=== PATIENT | male | born 1955 | race Caucasian/White ===

== ENCOUNTER → 2017-03-21 | Outpatient (CLI) | payer BC ==
--- NOTE | 2017-03-21 20:58 | CONS ---
CONSULTATION REASON FOR CONSULTATION: Obstructive sleep apnea. This is a 61-year-old male patient. He is coming in for a routine check up regarding obstructive sleep apnea treatment and the patient is also requesting supplies. The patient was diagnosed having obstructive sleep apnea. Based on the sleep study that was done back in 2005 at [facility]. At that time, the patient was found to have mild DIVYA with a apnea-hypopnea index of 6 worse in a supine body position with an AHI of 15. In 2007 the patient had gained significant amount of weight and his repeat polysomnogram showed an AHI of 47, consistent with severe DIVYA. At that time, the patient was given CPAP therapy at a pressure of 11 cm of water. This is the second CPAP unit that the patient has since he started treatment back in 2005. His current CPAP unit is adjusted to the pressure of 11 cm of water. He is still using it every night. He benefits from treatment. He wakes up alert and refreshed during the day. Unfortunately he started sleeping on a couch at around 8:00 pm. He gets up around midnight, goes to his bed and sleeps between 1:00 a.m. and 7:30 a.m. in the morning. No snoring while on the CPAP; however, he snores excessively while off the CPAP. His average CPAP use is 4 hours and 42 minutes. His CPAP use for more than 4 hours is more than 75% of the time. His AHI while on treatment is down to 2.3. He is trying to lose weight although overall his weight is up to 298 pounds and this has been considerably higher compared to his baseline of 235. At the time of his initial diagnosis. Overall he is at least 60 pounds up in his weight. The patient has no insomnia. He no restlessness in lower extremities. His Maxwell score is at 2. He does not fall asleep while driving or the performing activities of day-to-day life. He lives an [place]. His main comorbidities include hypertension. PAST MEDICAL HISTORY: 1. Obstructive sleep apnea. Details discussed above. 2. Hypertension. 3. Obesity with interval weight gain. 4. Hepatitis C that was treated. 5. Skin cancer. PAST SURGICAL HISTORY: Includes skin cancer resection. DRUG ALLERGIES: Not known. OUTPATIENT MEDICATION LIST: Includes losartan hydrochlorothiazide 100/25, 1 tablet a day. Norvasc 5 mg p.o. daily. SOCIAL HISTORY: The patient is a nonsmoker. No history of alcohol. No history of IV drugs. FAMILY HISTORY: Negative for obstructive sleep apnea. REVIEW OF SYSTEMS: 12-point review of system was done and positive findings are mentioned above in the history of present illness. No headaches. No focal neurological deficit. No nausea, vomiting or diarrhea. No dysuria, frequency or urgency. No skeletal aches or pains. No ulceration or wounds or lesions. No falls. No anxiety. No depression. No heartburn. No restlessness in lower extremities. No panic. No claustrophobia. No sexual dysfunction. BP is 170/86, pulse 88, respirations 16, temperature 98.1, saturation 96% on room air. Weight is 298. Height is 6-2 and neck size 18-3/4 of an inch. GENERAL APPEARANCE: Calm, comfortable, no acute distress. HEAD: Atraumatic, normocephalic. NECK: Supple. The patient has a Mallampati class IV. There is no goiter or neck masses. LUNGS: Clear to auscultation. HEART: Sounds regular rhythm. Normal S1, S2. No S3, S4. No murmurs. ABDOMEN: Soft, nontender. No organomegaly. EXTREMITIES: No edema. No cyanosis or clubbing. NEUROLOGIC: Alert and oriented x3. There is no focal neurological deficits. PSYCHIATRIC: Negative for anxiety or depression. Skin is negative for any wounds or ulceration. IMPRESSION: 1. Severe symptomatic obstructive sleep apnea based on the sleep study that was done in 2007. The patient's AHI was 47 and the patient has been successfully being treated with CPAP with a pressure of 11 cm of water. 2. Obesity with interval 60 pounds weight gain since 2005. 3. Hypertension. 4. Hepatitis C. 5. Skin cancer resected. PLAN: The patient continues to have successful treatment. I do not see the need to repeat a sleep study. I do not see the need to repeat his CPAP titration. His machine is functional. He will be given a Nuance Pro nasal nose pillow which he has been using for quite some time. Implement good sleep hygiene measures. He has been sleeping between the couch in the living room and his bed. He was asked to consolidate all sleep in the bedroom and he has been quite compliant with CPAP machine. Monitor blood pressure, knowing that on today's blood pressure reading he had elevated number and this needs to be further followed up by his primary care physician. Encourage weight loss. Implement good sleep hygiene measures. We will continue to follow. His CPAP supplies will be sent to [facility]. SUJIT / RD: [id number] /
== END ==
LOC: SLEEP 14:43
PROVIDERS: ATTEND Internal Medicine Critical Care Medicine
DX: G47.33 Obstructive sleep apnea (adult) (pediatric) (principal); E66.9 Obesity, unspecified; I10 Essential (primary) hypertension; B19.20 Unspecified viral hepatitis C without hepatic coma; Z79.899 Other long term (current) drug therapy
CPT/HCPCS: 99201

== ENCOUNTER → 2018-03-20 | Outpatient (CLI) | payer BC ==
--- NOTE | 2018-03-20 20:22 | SFUN ---
SLEEP CENTER FOLLOW UP NOTE This patient is coming in for an annual check regarding his DIVYA. His treatment has been very successful over the past 1 year. The patient was patient has severe DIVYA with an AHI of 47, and the patient is currently on CPAP pressure of 11 cm of water. Over the past 1 year the patient has lost around 9 pounds. The patient is using a Nuance nose pillow. His DME is [employer]. He is refreshed and alert during the day and he continues to use CPAP every night without any interruption. His CPAP use for the past 30 days has been more than 90%. He is averaging about 4.7 hours of CPAP use per night. Leak factor 7 L/minute. AHI while on treatment is down to 0.7. REVIEW OF SYSTEMS: Review of system was done. No other positive findings other than things mentioned above. No headaches. No nausea, no vomiting. No heartburn, no chest pain. No shortness of breath. No altered mentation. No anxiety or depression. No parasomnias. No claustrophobia, no anxiety. No panic, no depression. PHYSICAL EXAMINATION: BP is 159/91, pulse 83, respirations 18, temperature 98.4, saturation 98% on room air. Weight is 290. Height is 6 foot 2, [place] score 3, BMI 37.2. GENERAL APPEARANCE: Calm, comfortable. Head is atraumatic, normocephalic. NECK: Supple. No JVD. No goiter or neck masses. LUNGS: Clear to auscultation. HEART: Sounds regular rhythm. Normal S1, S2. No S3. No murmurs. ABDOMEN: Soft, nontender. No organomegaly. EXTREMITIES: No edema. No cyanosis or clubbing. IMPRESSION: 1. Severe obstructive sleep apnea with an AHI of 47. Continues to be on CPAP pressure of 11 cm of water. 2. Hypersomnia, recovered, [place] score is at 3. 3. Hypertension. 4. Obesity with interval 9 pounds weight loss. Current BMI is at 37.2, and weight is at 290. 5. Hepatitis C viral infection that was treated. 6. History of skin cancer. PLAN: 1. Continue CPAP therapy at same level of pressure which is 11 cm of water. 2. Continue Nuance nose pillow. 3. New CPAP supplies. 4. No need for any further adjustments. 5. Encourage further weight loss and see me back in a year's time or earlier if needed. MMODL / IJN: [id number] /
== END ==
LOC: SLEEP 13:25
PROVIDERS: ATTEND Internal Medicine Critical Care Medicine
DX: G47.33 Obstructive sleep apnea (adult) (pediatric) (principal); I10 Essential (primary) hypertension; E66.9 Obesity, unspecified; Z68.37 Body mass index [BMI] 37.0-37.9, adult; Z85.828 Personal history of other malignant neoplasm of skin; Z99.89 Dependence on other enabling machines and devices; Z86.19 Personal history of other infectious and parasitic diseases

== ENCOUNTER → 2019-03-05 | Outpatient (CLI) | payer BC ==
--- NOTE | 2019-03-05 20:02 | PN ---
PROGRESS NOTE This is an annual visit for this patient with a known history of obstructive sleep apnea. The patient has an AHI of 47 and is currently on CPAP pressure of 11. The patient has lost weight. Currently he is down to 274. He is very compliant, averaging around 5.6 hours of CPAP use per night. His CPAP use for more than 4 hours is 26/30. Leak is 2 L/minute and his AHI is down to 0.8. He is using a Nuance nose pillow. He has no specific complaints. He wanted me to increase his starting pressure, which was set at 4, and upon trying different pressures, he liked a starting pressure of 8. REVIEW OF SYSTEMS: Fourteen-point review of systems was done. Positive findings were all mentioned above in the history of present illness. PHYSICAL EXAMINATION: VITAL SIGNS: BP is 136/89, pulse 87, respirations 16, temperature 98.5, saturation 97% on room air. Height is 6 feet 1 inch, weight 274. [place] score is 3. BMI is 35.6. GENERAL APPEARANCE: Calm, comfortable. HEAD: Atraumatic, normocephalic. NECK: Supple. There is no JVD. No goiter or neck masses. LUNGS: Clear to auscultation. HEART: Heart sounds are regular rate and rhythm. Normal S1, S2. No S3, S4. No murmurs. ABDOMEN: Soft, nontender. No organomegaly. EXTREMITIES: No edema. No cyanosis or clubbing. NEUROLOGIC: Alert and oriented x3. No focal neurological deficits. PSYCHIATRIC: Negative for anxiety or depression. IMPRESSION: 1. Obstructive sleep apnea with an apnea/hypopnea index of 47, currently on CPAP pressure of 11 cm of water. 2. Chronic hypersomnia, improved. 3. Obesity with interval weight loss. Currently he is down to 274 with a BMI of 35.6. 4. Hypertension. 5. Hepatitis C. 6. History of skin cancer. PLAN: 1. Continue CPAP therapy at the same level of pressure. 2. Increase the starting pressure to 8 with an automatic RAMP time. 3. Continue the Nuance nose mask, medium size. 4. Compliance data was checked. 5. Encourage weight loss. 6. See me back in a year's time. MMODL / IJN: [id number] /
== END | disposition home or self-care (01) ==
LOC: SLEEP 13:03
PROVIDERS: ATTEND Internal Medicine Critical Care Medicine
DX: G47.33 Obstructive sleep apnea (adult) (pediatric) (principal); E66.9 Obesity, unspecified; I10 Essential (primary) hypertension; B19.20 Unspecified viral hepatitis C without hepatic coma; Z85.828 Personal history of other malignant neoplasm of skin; Z68.35 Body mass index [BMI] 35.0-35.9, adult; Z99.89 Dependence on other enabling machines and devices